=== PATIENT | female | born 1965 | race Caucasian/White ===

== ENCOUNTER → 2023-04-26 11:16 | Outpatient (BNVA) | payer BC, SELFPAY | PROVIDERS: Family Provider Family Medicine; PCP Nurse Practitioner Family; Visit Provider Internal Medicine Rheumatology | DX: Z79.899 Other long term (current) drug therapy (principal); Z11.59 Encounter for screening for other viral diseases; M19.90 Unspecified osteoarthritis, unspecified site; M19.041 Primary osteoarthritis, right hand | CPT/HCPCS: 36415; 73130; 86200; 86480; 86704; 86803; 87340 ==

== ENCOUNTER 2023-05-10 11:29 | Outpatient (CLI) | payer BC, SELFPAY ==
--- NOTE | 2023-05-10 11:45 | US_ITS ---
WS: [id number] ULTRASOUND SOFT TISSUE NECK INDICATION: Neck edema unspecified. Bilateral parotid swelling. TECHNIQUE: Ultrasound bilateral parotid glands. FINDINGS: Ultrasound bilateral parotid glands demonstrate normal parotid echogenicity. A few incident al intraparotid lymph nodes with normal fatty emmie. No suspicious cystic or solid lesions. No other s uspicious findings. IMPRESSION: Normal bilateral parotid echotexture. 1. Incidental intraparotid lymph nodes. 2. No suspicious cystic or solid lesions.
== END 2023-05-10 11:30 | disposition home or self-care (01) ==
LOC: RAD 11:30
PROVIDERS: Family Provider Family Medicine; PCP Nurse Practitioner Family; Visit Provider Internal Medicine Rheumatology
DX: R60.0 Localized edema (principal)
CPT/HCPCS: 76536